=== PATIENT | male | born 1945 | race Caucasian/White ===

== ENCOUNTER 2019-03-03 17:09 | Emergency (ER) | payer MEDICARE, SELFPAY ==
[2019-03-03 17:10] VITALS: BP 79/53; PULSE 45; RESP 16; TEMP 36.6; O2SAT 97; BMI 23.9
--- NOTE | 2019-03-03 17:12 | RAD_ITS ---
STUDY: X-RAY - LEFT HAND REASON FOR EXAM: Male, 73 years old. Degloving of the fourth digit. TECHNIQUE: 3 view(s) of the hand. COMPARISON: None. FINDINGS: Normal radiocarpal articulation. Normal distal radioulnar joint. Normal visualized carpal bones. Normal carpal articulations There is degenerative arthrosis of the carpometacarpal (CMC) articulation of the thumb. Normal second through fifth carpometacarpal joints. Normal metacarpi. Normal metacarpophalangeal joint of the thumb. Normal interphalangeal joint of the thumb. Normal proximal and distal phalanges of the thumb. Normal metacarpophalangeal joints of the second through fifth fingers. There are mild degenerative changes of the proximal interphalangeal joints. There is amputation of the fourth digit at the level of the distal interphalangeal joint. There is disruption of the soft tissues surrounding the fourth proximal and mid fingers consistent with absence of the surrounding skin and soft tissues. Otherwise normal phalanges of the second through fifth fingers. The soft tissue structures are unremarkable. 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 Electronically Signed: Hussain Garcia DO at 17:57 EDT Tel [phone], Service support ,
--- NOTE | 2019-03-03 17:14 | ED.DCSUM_ITS ---
History of Present Illness Chief Complaint: Upper Extremity Injury Informant: Patient, Family Onset: Today Mechanism/Context: Blunt Injury - Degloving left ring finger Quality of Pain: Dull, Aching Current Severity: Mild Maximum Severity: Moderate Worsened by: Movement and touch Relieved by: Nonuse Associated Symptoms: Loss of function. Negative for: Parasthesias, Weakness Narrative: Patient is a 73-year-old [id number] male with no medical problems who presents after injury his left ring finger. He was reaching for something and left on the roof. He fell from a ladder and his finger got caught. He states he tore his left finger off. Tetanus needs updated. He list penicillin as an allergy;however, he does not know what his reaction was. He denies head trauma. No loss conscious. Denies neck pain. He has no other complaints. Tetanus Immunization: >10 years Prior similar symptoms: No Recent Illness/Hospitalization: No - Past Medical History (1) No significant past medical history Status: Acute Past Medical History - Allergies and Home Meds Allergies/Adverse Reactions: Allergies Penicillins Allergy (Verified 11/24/15 14:20) Unknown Primary Care Physician: Porfirio Noble MD [Primary Care Provider] - Prior records reviewed: No Past Medical History: None Surgical History: no surgical history Lives: Spouse/ Significant Other Smoking Status: Never smoker Alcohol: None Drugs: None Review of Systems General: Denies: Chills, Fever, Malaise, Subjective, Sweats Eyes: Denies: Visual changes - bilaterally, Blurred Vision - bilaterally ENT: Denies: Rhinorrhea, Sore throat Cardiovascular: Denies: Chest pain, Palpitations Respiratory: Denies: Dyspnea, Cough, Dyspnea on exertion Gastrointestinal: Denies: Abdominal pain, Nausea, Vomiting, Diarrhea, Melena, Hematochezia Genitourinary: Denies: Dysuria, Hematuria, Frequency Musculoskeletal: Reports: Extremity Pain. Denies: Myalgias, Arthralgias, Neck pain, Back pain Skin: Reports: Rash, Wounds, - - Degloving left index finger with amputation of the distal phalanx Neurological: Denies: Weakness Endocrine: Denies: Polyuria, Polydipsia Hematologic: Denies: Easy bruising, Easy bleeding Allergy: Denies: Uticaria, Swelling of the mouth Physical Exam Vital Signs/Narrative: Vital Signs Temp Pulse Resp BP Pulse Ox 03/03/19 17:10 97.8 F 45 L 16 79/53 L 97 Inital Vital Signs reviewed: Yes General: Well nourished, Well developed Head: Normocephalic, Atraumatic Eyes: Perrl, EOMI. Negative for: Pale conjunctiva, Scleral icterus, - ENT: TM's clear, No hemotympanum or drainage, No trauma Neck: Nontender, Full ROM. Negative for: Spinal Tenderness, Paraspinal Tenderness Cardiovascular: Regular rhythm, No murmurs, Normal S1, Normal S2, Bradycardia Respiratory: No distress, CTA bilaterally, Chest nontender Abdomen: Soft, Nontender, Nondistended, Normal bowel sounds Back: Nontender. Negative for: CVA Tenderness - Right, CVA Tenderness - Left, Spinal Tenderness, Paraspinal Tenderness Skin: Normal color, No rash, Trauma Neurological: Alert, Oriented x3, Cranial nerves II-XII grossly intact, Normal Strength, Normal Sensation Psychological: Normal affect - Glascow Coma Scale Eye Opening: Spontaneous Motor: Extensor Response Diagnostic/Tx/Re-eval Chest X-Ray - ED: Read by ED Physician, - 03/03/19 17:12 Hand Min 3 Views [RAD] Stat Laboratory Results 03/03/19 03/03/19 17:20 17:20 WBC 7.8 RBC 4.12 L Hgb 13.6 Hct 40.9 MCV 99.3 H MCH 33.0 H MCHC 33.3 RDW Std Deviation 47.9 H RDW Coeff of Wendie 13.1 Plt Count 211 MPV 9.6 Immature Gran % (Auto) 0.300 Neut % (Auto) 55.9 Lymph % (Auto) 30.7 Glascock % (Auto) 11.6 H Eos % (Auto) 1.1 Baso % (Auto) 0.4 Absolute Neuts (auto) 4.4 Absolute Lymphs (auto) 2.41 Nucleated RBC % 0 Sodium 140 Potassium 3.7 Chloride 108 H Carbon Dioxide 26.0 Anion Gap 6 BUN 31 H Creatinine 1.28 Estim Creat Clear Calc 53.93 Est GFR (MDRD) Af Amer 71 Est GFR (MDRD) Non-Af 58 L BUN/Creatinine Ratio 24.2 H Glucose 114 H Calcium 8.6 Driscoll reveals distal phalanx to be intact. The middle and proximal phalanx appear normal. The tendon is still attached to the distal phalanx. 3 view x- ray was obtained. - Rhythm Strip Rhythm Strip: Sinus Rhythm Rate: 39 Ectopy: None - EKG Initial EKG Interpretation: Sinus Bradycardia - Sinus bradycardia with a ventricular rate of 35. [place] interval 280 ms. QS duration 92 ms. QT duration 42 ms. There is no acute ischemic changes. This represents a vasovagal response as patient is hypotensive as well and still in pain. - Medical Decision Making X-ray was obtained to determine if there is fracture of any of the bones. The skin was wrapped in saline and placed over ice. Patient tetanus was updated. He received a gram of Ancef. Dr. Mancilla was paged. I was informed by nursing staff that he is bradycardic and hypotensive. This would be a vasovagal response. He was placed on a monitor. He was made n.p.o. Case was discussed with Dr. Christo Mancia. He recommended transfer to a hand hu rgery does microvascular surgery. Dr. Adia Leija on-call for [place] [facility] was paged. states that she has seen Dr. Leija for Carpal Tunl., May 2018. ED Disposition - Plan for ED Patient: Disposition: [facility] Diagnosis: Degloving injury of finger, Amputation distal phalanx left ring fing Referrals: Porfirio Noble MD [Primary Care Provider] -
[2019-03-03] MEDS: Ondansetron 4 MG/2 ML Vial IV (17:22)
--- NOTE | 2019-03-03 17:24 | NURSING ---
[id number] GARCIA THROUGH HIS CELL PHONE
--- NOTE | 2019-03-03 17:25 | EKG12_ITS ---
Test Reason : Blood Pressure : / mmHG Vent. Rate : 035 BPM Atrial Rate : 035 BPM P-R Int : 180 ms QRS Dur : 092 ms QT Int : 482 ms P-R-T Axes : 075 -60 051 degrees QTc Int : 367 ms Marked sinus bradycardia Left axis deviation Inferior infarct , age undetermined Abnormal ECG Confirmed by NETTE MARQUEZ, RAF ([id number]), purchasing expeditor DEBBIE BLAKE ([id number]) on 03/05/2019 1:28:12 PM Referred By: KARLENE Confirmed By:JUDITH PERDUE MD
--- NOTE | 2019-03-03 17:25 | NURSING ---
CALLED [facility] , DR SRINIVASAN ENTRY LEVEL ACCOUNT REPRESENTATIVE [phone]
[2019-03-03] MEDS: Morphine 4 MG/ML Syringe IV (17:27)
[2019-03-03] MEDS: Diphth,Pertuss(Acell),Tet Vac 0.5 ML Vial IM (17:27)
--- NOTE | 2019-03-03 17:32 | NURSING ---
NO OLD EKGS
--- NOTE | 2019-03-03 17:36 | NURSING ---
DR GARCIA FOR DR BARONE
[2019-03-03 17:39] LABS: Absolute Lymphocyte Count 2.41 X10^3/uL (0.83-4.51); Absolute Neutrophil Count 4.4 X10^3/uL (2.0-7.7); Basophil# 0.03 X10^3/uL; Basophil% 0.4 % (0-1); Eosinophil# 0.09 X10^3/uL; Eosinophils% 1.1 % (0-5); Hematocrit 40.9 % (40-54); Hemoglobin 13.6 g/dL (13.0-16.5); Lymphocyte # 2.41 X10^3/ul (4.0); Lymphocyte % 30.7 % (19-41); Mean Corp Hgb Conc 33.3 g/dL (32-36); Mean Corpuscular Volume 99.3 fL (80-94); Mean Platelet Vol. 9.6 fl (6.2-12.0); Monocyte# 0.91 X10^3/uL; Monocyte% 11.6 % (0-10); NRBC Flagged by Analyzer 0 % (0-5); Neutrophil # 4.38 X10^3/uL (2.7-7.7); Neutrophil % 55.9 % (47-70); Platelet Count 211 K/mm3 (150-450); RBC Distribution Width CV 13.1 % (11.6-14.6); RBC Distribution Width SD 47.9 fl (35.1-43.9); Red Blood Count 4.12 M/mm3 (4.6-6.2); White Blood Count 7.8 K/mm3 (4.4-11.0)
[2019-03-03] MEDS: Cefazolin 1 GM/50 ML BAG IV (17:40)
--- NOTE | 2019-03-03 17:49 | NURSING ---
DR SRINIVASAN CALLED BACK FOR DR BARONE
[2019-03-03 17:54] LABS: Anion Gap 6 (5-15); BUN 31 mg/dL (7-18); BUN/Creat Ratio 24.2 RATIO (10-20); Calcium,Total 8.6 mg/dL (8.5-10.1); Chloride 108 mmol/L (98-107); Creatinine, Serum 1.28 mg/dL (0.70-1.30); EST Glomerular Filtration Rate 58 mL/min (>60); Est Glom Filt Rate - Afr Amer 71 mL/min (>60); Estimated Creatinine Clearance 53.93 ml/min; Glucose 114 mg/dL (74-106); Potassium 3.7 mmol/L (3.5-5.1); Sodium Level 140 mmol/L (136-145)
[2019-03-03 17:56] VITALS: BP 107/67; PULSE 37; RESP 14; O2SAT 96
--- NOTE | 2019-03-03 17:59 | NURSING ---
ACCEPTED AT [facility] TO ER
--- NOTE | 2019-03-03 18:27 | NURSING ---
LIFEFLIGHT 10 MIN
[2019-03-03 18:38] VITALS: BP 104/65; PULSE 41; RESP 13; O2SAT 96
== END 2019-03-03 18:51 | disposition short-term general hospital (02) ==
LOC: ED 18:02
PROVIDERS: Emergency Provider Emergency Medicine; Family Provider Family Medicine; PCP Family Medicine
DX: S68.625A Partial traumatic transphalangeal amputation of left ring finger, initial encounter (principal); W11.XXXA Fall on and from ladder, initial encounter; Y93.9 Activity, unspecified; Y92.9 Unspecified place or not applicable; Y99.9 Unspecified external cause status; Z23 Encounter for immunization; R00.1 Bradycardia, unspecified; Z88.0 Allergy status to penicillin
CPT/HCPCS: 73130; 80048; 85025; 90715; 93005; 96365; 96372; 96375; 99285; J7030; J7050; A4216; J2405

== ENCOUNTER 2019-06-07 09:00 | Outpatient (RCR) | payer MEDICARE, SELFPAY ==
--- NOTE | 2019-03-26 09:21 | HP.OTEVAL_ITS ---
Patient's Visit Information SHAKILA REHMAN is a 73 year old M, referred to Occupational Therapy by Debora Fitzgerald MD, with a diagnosis of left RF ray amputation. Date of Evaluation: 03/24/19 Occupational Therapist: Berta Shelton, SANDOVALR/Ar, CHT - Subjective Subjective: This 73 year old male was seen for OT/CHT eval with dx of left ring avulsion injury of left ring finger. Pt states he was cleaning up from painting. Pt states he was reaching above head for a cup that was on scaffolding. Pts wedding ring caught and pulled his left RF off. Pt underwent a distal ray amputation of left RF. Pt is currently 2 weeks 6 days s/p. pt reports phantom pain, limited ROM and edema. This is increasing need of assistance with ADLs and IADLS. - Pain left hand 4 Pain Intensity Range: 1, 8 - ROM Opposition: 1 MP: left IF 55 MF 60 LF 55 PIP: left IF 50 MF 45 LF 35 DIP: left IF 25 MF 15 LF 15 ROM Comments: pt demo with limited ROM of left digits decreasing pts ind. use of dominat hand - Strength [employer] Field Supervisor: Left NT right 100# Lateral Pinch: left NT right 20# Tripod Pinch: left NT right 18# - Edema Wrist: left 18cm right 17cm PIP: left MF 8.2 right 6.8 Proximal Phalanx: left 23cm right 21cm - Sensation Sensation Comments: phantom pain - Quick DASH-Disab of Arm,Shoulder& Hand Quick DASH Score: 61.3625 - Goals Goal:: do not start untill cleared by sx. pt will demo a incrase in left treasury associate strength of 35# or greater by d/c in increase home mtg by d/c Goal:: Pt will demo the ability to form a composite fist to hold and receive 10 coins without dropping coins/ and coin manipulation/money mtg. tasks and ind. With manipulating fasteners for dressing by D/C. Pt will demo the ability to form a composite fist to return to performing BADLs and IADLS at [facility] by d/c. Goal:: Pt will report pain no greater than 1/10 with use of affected hand with BADLs and IADLs by d/c. Goal:: Pt will demo understanding of edema control techniques by end of 2nd session and perform recommendations to control edema. Goal:: Pt will demo understanding of scar mtg. by end of 2nd session to increase tissue extensibility to limit scar adhesions and allow full tendons function by d/c. Goal:: pt will report IND. with ADls and IADLS with min. compensitory fatoumata. - Rehabilitation General Assessment: pt demo with clean healing incision, edema and limited functional grasp of left hand. Pt is left hand dominant and would like to return to his PLOF with ADLs and IADls. Pt would benefit from skilled OT services 1-2 x a week for 4 weeks to ensure return of pt ROM/strength and decrease pain for pt to IND. use of left hand with daily tasks by d/c. Today pt was ed. on edema control, scar mtg and ROM. pt was given handout and demo understanding of his ex. and agree to POC. Rehabilitation Potential: Good - Anticipated Interventions Anticipated Interventions: A/AAROM/PROM, Strengthening, Edema Control, Scar Care, Triggerpoint Release, Desensitization, Sensory Retraining, Wound Care, Modalities, Orthoses, Joint Protection/Energy Conservation - Visit Plan Frequency: 1-2x /Week Duration: 2 Months TEXT: Thank you for the opportunity to evaluate your patient. For Medicare and Medicare HMO plans, please review the plan of care and approve it. It will need to be FAXED BACK to us at [phone] for Medicare purposes. Please let me know if there are questions or concerns regarding this plan of care. Physician Signature: Date:
--- NOTE | 2019-06-30 14:15 | HP.OTDCSUM ---
HP - OT D/C Summary It has been my pleasure to treat SHAKILA REHMAN under orders from Debora Fitzgerald MD, for the diagnosis of left RF ray amputation for a total of 7 visit(s). Please see the following information for a summary of their discharge status. - Overall Improvement % Improvement: 80 - Objective Objective/Function: left MF PIP 7.2, right is 6.6. pt demo with a PIP of IF, MF 77* prior to session following session pt gained 10* and demo the ability to touch palm of hand with IF and MF. Lf still limited but making progress- pt is to cont with HEP of blocking, Passive ROM. place and hold ex and contrast bath/ co band for edema control- therapsit advised pt to try to perform the ex earlier in the day and possible will notice more gains in ROM and use. Pt is left handed and states he is not limited with ADLs or IADls at this time. IF PIP 85 flex. MF PIP 95 flex. LF PIP 70 flex. left insurance claims examiner 35#. left lateral pinch 14# right 20#. left tripod pinch 12# right 18# - Goals Patient Goals: Regain Mobility, Regain Strength, Decrease Pain, Decrease Swelling/Stiffness, Use Hand/Wrist/Arm Normally Again Goal:: do not start untill cleared by sx. pt will demo a incrase in left insurance claims examiner strength of 35# or greater by d/c in increase home mtg by d/c Goal:: Pt will demo the ability to form a composite fist to hold and receive 10 coins without dropping coins/ and coin manipulation/money mtg. tasks and ind. With manipulating fasteners for dressing by D/C. Pt will demo the ability to form a composite fist to return to performing BADLs and IADLS at [facility] by d/c. Goal:: Pt will report pain no greater than 1/10 with use of affected hand with BADLs and IADLs by d/c. Goal:: Pt will demo understanding of edema control techniques by end of 2nd session and perform recommendations to control edema. Goal:: Pt will demo understanding of scar mtg. by end of 2nd session to increase tissue extensibility to limit scar adhesions and allow full tendons function by d/c. Goal:: pt will report IND. with ADls and IADLS with min. compensitory fatoumata. - Plan Plan: D/C - D/C Information Discharge Comments: pt seen for 7 OT visits- pt has made great gains with functional use of left hand- he continues to struggle with stiffness in AM and states by PM hand is better- pt has detailed HEP to cont to make lasting gains with his ROM and strength- pt has met OT goals and is D/C at this time with HEP- unless otherwise specified by If there are questions or concerns regarding this patient's occupational therapy, please fell free to call me at [phone]. Thank you for the referral of this patient. Sincerely, Berta Shelton, OTR/L, CHT
== END 2019-06-07 19:00 | disposition home or self-care (01) ==
LOC: OT 09:00
PROVIDERS: Family Provider Family Medicine; PCP Family Medicine; Referring Provider Orthopaedic Surgery Hand Surgery; Visit Provider Orthopaedic Surgery Hand Surgery
DX: S61.209D Unspecified open wound of unspecified finger without damage to nail, subsequent encounter (principal)
CPT/HCPCS: 97035; 97110; 97140; 97165; 97166; 97530